=== PATIENT | male | born 1990 | race Caucasian/White ===

== ENCOUNTER 2022-02-01 17:32 | Outpatient (REF) | payer BC, SELFPAY ==
[2022-02-03 09:37] LABS: HBs Antibody, Quant <3.1 mIU/mL (See Note); Hepatitis B Surface Ab Negative (See Note)
[2022-02-03 10:24] LABS: HIV-1/2 Ag & Ab Screen Negative (Negative)
[2022-02-03 10:37] LABS: Hepatitis C Ab w Rflx HCV PCR Negative (Negative)
[2022-02-03 11:58] LABS: Syphilis Serology (RPR) Negative (Negative)
[2022-02-03 12:37] LABS: HSV 1 DNA Result Positive (Negative); HSV 2 DNA Result Negative (Negative); Varicella Zoster DNA Result Negative ((See Note))
[2022-02-03 12:38] LABS: HSV 1 DNA Result Positive (Negative); HSV 2 DNA Result Negative (Negative); Varicella Zoster DNA Result Negative ((See Note))
[2022-02-03 14:22] LABS: Chlamydia Result Negative (Negative); GC Result Negative (Negative)
[2022-02-04 09:22] LABS: Chlamydia Result Negative (Negative); GC Result Negative (Negative)
== END 2022-02-01 17:33 | disposition home or self-care (01) ==
LOC: LBN 17:32
PROVIDERS: Visit Provider Physician Assistant Medical
DX: Z20.2 Contact with and (suspected) exposure to infections with a predominantly sexual mode of transmission (principal); Z11.59 Encounter for screening for other viral diseases; Z11.4 Encounter for screening for human immunodeficiency virus [HIV]; Z11.3 Encounter for screening for infections with a predominantly sexual mode of transmission
CPT/HCPCS: 86706; 86803; 87389; 87491; 87529; 87591; 87798; 86592

== ENCOUNTER 2023-06-19 14:52 | Emergency (ER) | payer OTHER, SELFPAY ==
--- NOTE | 2023-06-19 | DI.RAD_ITS ---
Exam(s) XR KNEE RT 3V AP,LAT,DANNY EXAM: XR KNEE RT 3V AP,LAT,DANNY CLINICAL HISTORY: hyperextension, pain. TECHNIQUE: 2D digital imaging was performed of the right knee. Three views obtained. AP, lateral an d PA tunnel views were obtained. COMPARISON: No exams were available for comparison FINDINGS: BONES: No acute fracture is present. No bony destructive lesion is seen. There is a bone island in th e distal right femur. JOINTS: The knee is normally aligned. No joint effusion is seen. SOFT TISSUE: Normal. IMPRESSION: No acute fracture or dislocation. DATA REPOSITORY: RADIATION DOSE DELIVERED:
[2023-06-19 14:55] VITALS: BP 140/84; PULSE 81; RESP 18; TEMP 36.8; O2SAT 98
--- NOTE | 2023-06-19 16:00 | ED.GENADUL_ITS ---
Discharge Plan Disposition Patient Disposition: Home Condition: Stable Discharge Details Clinical Impression: Acute internal derangement of right knee Primary Care Provider: Unknown,Unknown ED Provider: Audra Cooper Home Meds and New Rx's Prescriptions: Continued glimepiride 4 mg Tablet 4 mg PO DAILY Discharge Instructions Instructions: Knee Sprain (DC) Additional Instructions: Wear Kota wrap to help reduce swelling. Apply ice to affected area 20 to 30 minutes 4-5 times daily for the next 2 days then can use heat or ice. 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 Suspect meniscal injury/internal knee derangement. Will apply ice give ibuprofen 800 mg orally and obtain x-ray of the right knee. Will apply Kota wrap supportive symptom management over the weekend. Advised to return to occupational medicine on Thursday if he feels the symptoms are not improving Medical Records Medical records reviewed: Yes I reviewed the patient's medical records. HPI General Mode of arrival: ambulatory . Date/Time Provider Initiated Documentation: 06/19/23 15:15 . Limitations to Documentation: no limitations . Information obtained by: patient . 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 He has been able to bear weight. He did not fall. There was no other injury. He did not take any medication for pain prior to arrival. There is no obvious deformity discoloration or lesion. Related Data Home Medications Medication Instructions Recorded Confirmed glimepiride 4 mg tablet 4 mg PO DAILY 06/19/23 06/19/23 Allergies Allergy/AdvReac Type Severity Reaction Status Date / Time No Known Allergies Allergy Unverified 06/19/23 14:59 General Stated Complaint: Orthopedic ROBIN: 4 Review of Systems All systems reviewed & are unremarkable except as noted in HPI and below PFSH All Active Problems (Updated 06/19/23 @ 16:04 by Audra Cooper, JEWELLERY DESIGNER) Acute internal derangement of right knee (Acute) Social History Smoking/Tobacco Use Status: Never Smoking risk assessment performed?: Yes Alcohol Intake: current Alcohol Intake frequency: a few times a month Alcohol type: beer Drug use: Never Substance use type: does not use Housing: house Do you feel safe at home: Yes Do you feel safe in your relationship?: Yes Exam Const General: cooperative, healthy appearing, comfortable and no acute distress Nutritional Appearance: obese Orientation: alert, awake and oriented x3 Resp Effort & Inspection: normal respiratory effort Cardio Rate: regular rate Extrem Right lower extremity: knee Details: normal to inspection, tenderness (Pain me dial and posterior no significant effusion appreciated), normal ROM and knee ligament exam normal (No pain or laxity on valgus/varus testing.); no swelling Course Vital Signs Vital signs: Vital Signs Temperature 36.8 C 06/19/23 14:55 Pulse 81 06/19/23 14:55 Respiratory Rate 18 06/19/23 14:55 Blood Pressure 140/84 06/19/23 14:55 Pulse Oximetry 98 06/19/23 14:55 Temperature 36.8 C 06/19/23 14:55 Temperature Source Skin 06/19/23 14:55 Pulse 81 06/19/23 14:55 Respiratory Rate 18 06/19/23 14:55 Respiratory Effort Normal, Non-Labored 06/19/23 15:00 Blood Pressure 140/84 06/19/23 14:55 Blood Pressure Position Sitting 06/19/23 14:55 Pulse Oximetry 98 06/19/23 14:55 Oxygen Delivery Method Room Air 06/19/23 14:55 Oxygen Flow Rate 0 06/19/23 14:55 Pain Level 6 06/19/23 14:55 PAWSS Have you Been Recently Intoxicated or Drunk Within the Last 30 days?: No Have you Ever Experienced Previous Episodes of Alcohol Withdrawal?: No Have you ever Experienced Withdrawal Seizures?: No Have you ever Experienced Delirium Tremens(DT)s?: No Have you ever undergone Alcohol Rehabilitation Treatment (i.e, inpt ot outpatient treatment programs)?: No Have you ever Experienced Blackouts?: No Have you ever Combined Alcohol with other Downers within the last 90 days?: No Have you ever Combined Alcohol with any other Substance of Abuse during the last 90 days?: No Positive Blood Alcohol level on Presentation? [PCS.BAL]: No Evidence of Increased Autonomic Activity (i.e. HR>120, tremor, sweating, agitation, nausea)?: No Result: 0
[2023-06-19] MEDS: Ibuprofen 800 MG TAB PO (16:22)
--- NOTE | 2023-06-19 17:22 | NUR.NOTE ---
Nursing Note: Assumed care of patient at this time; no nurse to nurse report receieved.
[2023-06-19 18:02] VITALS: BP 124/78; PULSE 71; RESP 18; O2SAT 98
== END 2023-06-19 18:05 | disposition home or self-care (01) ==
PROVIDERS: Emergency Provider Nurse Practitioner Acute Care
DX: M25.561 Pain in right knee (principal); M23.91 Unspecified internal derangement of right knee; V68.4XXA Person boarding or alighting a heavy transport vehicle injured in noncollision transport accident, initial encounter; Y93.89 Activity, other specified; Y92.89 Other specified places as the place of occurrence of the external cause; Y99.0 Civilian activity done for income or pay
CPT/HCPCS: 73562; 99283

== ENCOUNTER → 2023-11-12 01:32 | Outpatient (CLI) | payer OTHER, SELFPAY ==
--- NOTE | 2023-11-12 08:30 | DI.MRI_ITS ---
Exam(s) MR LOWER JOINT RT WO EXAM: MR LOWER JOINT RT WO CLINICAL HISTORY: persistent pain,instability,internal derangement rt knee,m23.91. TECHNIQUE: Multiplanar multisequence MRI was performed. COMPARISON: CR XR KNEE RT 3V AP,LAT,DANNY from 06/19/2023 FINDINGS: BONES: There is no acute fracture. There is a small focus of subchondral edema in the anterior aspec t of the medial femoral condyle. There is mild thinning and hyperintense signal of the overlying car tilage. JOINTS: The articular cartilage is otherwise unremarkable. No effusion is present. TENDONS: Extensor mechanism: Unremarkable. Medial retinaculum: Unremarkable. Lateral retinaculum: Unremarkable. Popliteus: Unremarkable. MUSCLES: Unremarkable. MENISCI: The medial meniscus is unremarkable. The lateral meniscus is unremarkable. SOFT TISSUES: Unremarkable. LIGAMENTS: Anterior Cruciate: Unremarkable. Posterior Cruciate: Unremarkable. Medial Collateral:Unremarkable. Lateral Collateral: Unremarkable. OTHER: IMPRESSION: 1. No evidence of a meniscal or ligament tear. 2. Osteochondral injury in the medial femoral condyle. DATA REPOSITORY:
== END ==
PROVIDERS: PCP Nurse Practitioner Family; Visit Provider Nurse Practitioner Family
DX: M93.261 Osteochondritis dissecans, right knee (principal); M25.561 Pain in right knee
CPT/HCPCS: 73721